=== PATIENT | female | born 2000 | race Caucasian/White ===

== ENCOUNTER 2022-01-14 21:20 | Emergency (ER) | payer BC ==
[~2022-01-14] VITALS: Ht 170.2 cm; Wt 120.0 kg
[2022-01-14 21:26] VITALS: TEMP 97.6
[2022-01-14 22:14] LABS: BASO % 0.2 % (0.0-2.0); EOS # 0.1 K/mm3 (0.0-0.7); EOS % 0.5 % (0.0-4.0); GRAN # 7.6 K/mm3 (1.4-6.5); GRAN % 66.3 % (42.2-75.2); HEMATOCRIT 39.6 % (37.0-47.0); HEMOGLOBIN 13.2 g/dl (12.5-16.0); LYMPH # 2.8 K/mm3 (1.2-3.4); LYMPH % 24.6 % (20.0-51.0); MEAN CELL VOLUME 89 fl (80.0-100.0); MEAN CORPUSCULAR HEMOGLOBIN 30 pg (27-31); MEAN CORPUSCULAR HGB CONC 33 g/dl (33.0-37.0); MEAN PLATELET VOLUME 10.7 fl (7.4-10.4); MONO # 0.9 K/mm3 (0.1-0.6); MONO % 8.1 % (1.7-9.3); PLATELET COUNT 308 K/mm3 (130-400); RED BLOOD COUNT 4.43 M/mm3 (4.10-5.30)
[2022-01-14 22:34] LABS: ALBUMIN 3.1 gm/dL (3.5-5.0); BILIRUBIN,TOTAL 0.4 mg/dL (0.2-1.2); CALCIUM 9.4 mg/dL (8.4-10.2); CREATININE, serum 0.81 mg/dL (0.57-1.11); POTASSIUM 3.7 mmol/L (3.5-4.5); TOTAL PROTEIN 7.3 gm/dL (6.2-8.1)
[2022-01-15] MEDS ORDERED: IBU800 M1 PO (01:28)
[2022-01-15 01:54] VITALS: BP 125/72; PULSE 84
== END 2022-01-15 02:01 | disposition home or self-care (01) ==
LOC: COL.ER 21:20
PROVIDERS: Emergency Medicine Emergency Medical Services
DX: K63.89 Other specified diseases of intestine (principal)
CPT/HCPCS: J1885; J7030; Q9967